=== PATIENT | female | born 1945 ===

== ENCOUNTER 2022-07-14 02:38 | Inpatient (IN) | payer MEDICARE, OTHER ==
[~2022-07-14] VITALS: Ht 160 cm; Wt 58.0 kg
[~2022-07-14 02:38] MED LIST: ALPR.25 PO; CARV6.25 PO; DIAZ10 PO; LOSA50 PO; ONDA4ODT MM; QUET100 PO; THYR60; ZOLP10 PO; thyroid med
[2022-07-14 03:09] LABS: BASOPHILS ABSOLUTE AUTO 0.04 K/mm3 (0.00-0.23); BASOPHILS PERCENT AUTO 0 % (0-2); EOSINOPHILS ABSOLUTE AUTO 0.03 K/mm3 (0.00-0.68); EOSINOPHILS PERCENT AUTO 0 % (0-6); Hematocrit 41.4 % (33.0-51.0); Hemoglobin 13.7 g/dL (11.5-16.0); IMMATURE GRAN ABSOLUTE AUTO 0.07 K/mm3 (0.00-0.10); IMMATURE GRAN PERCENT AUTO 0 % (0-1); LYMPHOCYTES ABSOLUTE AUTO 2.08 K/mm3 (0.84-5.20); LYMPHOCYTES PERCENT AUTO 13 % (21-46); MONOCYTES ABSOLUTE AUTO 0.45 K/mm3 (0.16-1.47); MONOCYTES PERCENT AUTO 3 % (4-13); Mean Corpuscular HGB 28.5 pg (26.0-34.0); Mean Corpuscular HGB Conc 33.1 g/dL (31.5-36.5); Mean Corpuscular Volume 86 fL (80-100); NEUTROPHILS ABSOLUTE AUTO 13.59 K/mm3 (1.96-9.15); NEUTROPHILS PERCENT AUTO 84 % (41-73); Platelet Count 313 K/mm3 (150-400); RDW Coefficient Variation 12.6 % (11.7-14.2); RDW Standard Deviation 39.5 fL (35.1-46.3); White Blood Cell Count 16.26 K/mm3 (4.00-11.30)
[2022-07-14 03:33] LABS: Albumin, Blood 3.6 g/dL (3.4-5.0); Albumin/Globulin Ratio 0.9 (0.8-1.8); Bilirubin, Total 0.4 mg/dL (0.1-1.0); Calcium, Blood 10.1 mg/dL (8.5-10.1); Creatinine, Blood 0.72 mg/dL (0.40-1.00); Globulin, Blood 3.9 g/dL (2.2-4.0); Potassium, Blood 4.1 mmol/L (3.5-5.5); Total Protein, Blood 7.5 g/dL (6.4-8.2)
[2022-07-14] MEDS ORDERED: ATORVASTATIN CA20 MG PO (06:32)
[2022-07-14] MEDS ORDERED: LOSA50 PO (06:32)
[2022-07-14] MEDS ORDERED: OMEP20ER PO (06:32)
[2022-07-14] MEDS ORDERED: CARVEDILOL6.25 MG PO (06:33)
[2022-07-14] MEDS ORDERED: FAMO20 PO (06:33)
[2022-07-14] MEDS ORDERED: ARMOUR THYROID PO (06:33)
[2022-07-14 07:29] LABS: CHOL/HDL RATIO 3.4; Cholesterol 178 mg/dL (50-200); HDL Cholesterol 53 mg/dL (>39); LDL/HDL RATIO 1.9; Low Density Lipoprotein Chol 102 mg/dL (0-110); Triglycerides 116 mg/dL (30-160); Very Low Density Lipoprot Chol 23 mg/dL (6-32)
[2022-07-14 13:34] LABS: SARS-Cov-2 (COVID-19) PCR, MMC NEGATIVE (NEGATIVE)
--- NOTE | 2022-07-14 14:54 | NUR ---
UPDATE HEAD PASTRY CHEF NURSES HERE TO CIRCUIT DESIGNER PT FOR ANGIO. GAVE NURSE BRIEF REPORT ON THE PT AND GOT PT TO VOID BEFORE PROCEDURE. VSS, DESTINY UPON TRANSFER TO HEAD PASTRY CHEF
--- NOTE | 2022-07-14 17:27 | NUR ---
SHIFT SUMMARY PT IS A/Ox4 AND FOLLOWS DIRECTIONS FROM STAFF. PT WAS ADMITTED WITH ELVATED TROPONIN WELL N/V RELATED TO HIATAL HERNIA. PT WENT FOR ANGIO THIS PM WITH STENT PLACEMENT. RIGHT RADIAL ACCESS SITE IS FREE OF BLEDDING, HEMATOMA, ORE REDNESS. PULSES PRESENT ABOVE AND BELOW THE SITE. RIGHT HAND IS COLD, BUT LIKELY RELATED TO THE COOLNESS FROM THE EDUCATIONAL GUIDANCE COUNSELOR. PT MAINTAINING SPO2 >94 ON 6L NX WITH SOME MILD SOB AT REST. PT HAS HAD INTERMITTENT EPISODES OF N/V, BUT RESPONDS WELL TO MEDS PER EMAR. PT HR JESSICA'd TO 49BPM FOR 12 SECS. PT WAS ASYMOTMATIC AND MD NOTIFIED. OTHER VSS, NADN T/O THE SHIFT
--- NOTE | 2022-07-14 18:45 | NUR ---
UPDATE RIGHT RADIAL ANGIO SITE WNL. REMOVED 2CC OF AIR FROM TR BAND AND MONITORED SITE FOR 30 SEC. NO BLEEDING, SWELLING, OR HEMATOMA NOTED. RETURED 15 MINS LATER @1845 AND SAW THAT SITE HAD SOME BLOOD. RETURNED 2 CC OF AIR BACK INTO TR BAND. NO MORE BLEEDING AT SITE NOTED. SMALL HEMATOMA FORMED PUT PULSES PRESENT ABOVE AND BELOW THE SITE. NOTIFIED ONCOMING NURSE ABOUT SITUATION AND WILL CONTINUE TO MONITOR CLOSELY
--- NOTE | 2022-07-14 22:13 | NUR ---
CARE ASSUMPTION: PATIENT A&O X4, VS WNL, DENIES CHEST PAIN/SOB/N/V/D. REVIEWED ANGIO SITE WITH OFF-GOING RN. SANGUINOUS FLUID UNDER TR BAND R/T OOZING WHEN OFFGOING RN REMOVED 2 CCS OF AIR. TR BAND WAS RE-INFLATED TO 9 CC. PATIENT DENIES TINGLING OR NUMBNESS IN RIGHT FINGERS, FINGERS COOL TO TOUCH THAT PATIENT STATES IS NORMAL, CAP REFILL <3 SECS. PATIENT VERBALIZES UNDERSTANDING OF RESTRICTED MOVEMENT OF R ARM. ARMBAND IN PLACE. BED LOW WITH CALL LIGHT IN PLACE.
[2022-07-15 03:57] LABS: Hemoglobin 12.9 g/dL (11.5-16.0); Mean Corpuscular HGB 28.5 pg (26.0-34.0); Mean Corpuscular HGB Conc 33.1 g/dL (31.5-36.5); Mean Corpuscular Volume 86 fL (80-100); Mean Platelet Volume 9.9 fL (9.1-12.4); Platelet Count 272 K/mm3 (150-400); RDW Standard Deviation 40.8 fL (35.1-46.3); Red Blood Cell Count 4.52 M/mm3 (3.80-5.20); White Blood Cell Count 16.01 K/mm3 (4.00-11.30)
[2022-07-15 04:18] LABS: Bun/Creatinine Ratio 47.1 (12.0-20.0); Calcium, Blood 9.3 mg/dL (8.5-10.1); Creatinine, Blood 0.53 mg/dL (0.40-1.00); Magnesium, Blood 2.1 mg/dL (1.6-2.4); Potassium, Blood 3.9 mmol/L (3.5-5.5)
--- NOTE | 2022-07-15 06:48 | NUR ---
SHIFT SUMMARY: PATIENT'S ANGIO SITE RECOVERED, DRESSING IS C/D/I, ARMBOARD IN PLACE. NO SWELLING AT SITE, SOME MILD BRUISING NOTED. VS WNL, A&O X4. PATIENT SBA TO TOILET. PATIENT COMPLAINING OF STOMACH PAIN/GAS AT 0645 - STATES SHE HAS NOT HAD BM IN SEVERAL DAYS. NO ADVERSE EVENTS THIS SHIFT. BED LOW WITH CALL LIGHT IN REACH. WILL REPORT TO ONCOMING RN.
--- NOTE | 2022-07-15 17:34 | NUR ---
SHIFT SUMMARY PT IS A/Ox4 AND FOLLOWS DIRECTIONS GIVEN BY STAFF. PT HAS BEEN NAUSEATED T/O THE SHIFT, BUT THE SCHEDULED ANTEMEICS HAS PRVEN TO BE EFFECTIVE IN MANAGING HER NAUSEA. PT WENT FOR ANGIO 07/14/22 AND HAD ONE STENT PLACED IN THE MID RCA. RADIAL ACCESS SITE HAS BEEN FREE OF BLEEDING OR OOZING T/O THE SHIFT. PULSES PRESENT ABOVE AND BELOW THE SITE, HAND WARM TO THE TOUCH. SMALL HEMATOMA NOTED, BUT HEMATOMA HAS NOT GROWN SINCE THIS AM. SITE NON-TENDER. POSSIBLE DC 07/16/22. PT MAINTAINS SPO2 >94% ON RA, BUT CAN BECOME SOB WITH AMBULATION. PT ON 1500 ML FLUID RESTRICTION. VSS, NADN T/O THE SHIFT
[2022-07-16 04:01] LABS: BASOPHILS ABSOLUTE AUTO 0.02 K/mm3 (0.00-0.23); BASOPHILS PERCENT AUTO 0 % (0-2); EOSINOPHILS ABSOLUTE AUTO 0.04 K/mm3 (0.00-0.68); EOSINOPHILS PERCENT AUTO 0 % (0-6); Hematocrit 38.3 % (33.0-51.0); Hemoglobin 12.9 g/dL (11.5-16.0); IMMATURE GRAN ABSOLUTE AUTO 0.03 K/mm3 (0.00-0.10); IMMATURE GRAN PERCENT AUTO 0 % (0-1); LYMPHOCYTES ABSOLUTE AUTO 2.74 K/mm3 (0.84-5.20); LYMPHOCYTES PERCENT AUTO 20 % (21-46); MONOCYTES ABSOLUTE AUTO 1.12 K/mm3 (0.16-1.47); MONOCYTES PERCENT AUTO 8 % (4-13); Mean Corpuscular HGB 28.9 pg (26.0-34.0); Mean Corpuscular HGB Conc 33.7 g/dL (31.5-36.5); Mean Corpuscular Volume 86 fL (80-100); Mean Platelet Volume 9.8 fL (9.1-12.4); NEUTROPHILS ABSOLUTE AUTO 9.46 K/mm3 (1.96-9.15); NEUTROPHILS PERCENT AUTO 71 % (41-73); Platelet Count 256 K/mm3 (150-400); RDW Coefficient Variation 12.9 % (11.7-14.2); RDW Standard Deviation 39.8 fL (35.1-46.3); Red Blood Cell Count 4.47 M/mm3 (3.80-5.20); White Blood Cell Count 13.41 K/mm3 (4.00-11.30)
[2022-07-16 04:19] LABS: Bun/Creatinine Ratio 36.4 (12.0-20.0); Calcium, Blood 9.2 mg/dL (8.5-10.1); Creatinine, Blood 0.55 mg/dL (0.40-1.00); Magnesium, Blood 2.1 mg/dL (1.6-2.4); Potassium, Blood 3.2 mmol/L (3.5-5.5)
--- NOTE | 2022-07-16 05:43 | NUR ---
SHIFT SUMMARY: PATIENT VS WNL ON RA. DENIES SOB/CHEST PAIN/N/V/D. AMBULATED TO TOILET X2 WITH SBA. PLEASANT AND COOPERATIVE WITH CARE. CALLS APPROPRIATELY. NO ADVERSE EVENTS THIS SHIFT. BED LOW WITH CALL LIGHT IN PLACE. WILL CONTINUE TO MONITOR UNTIL SHIFT CHANGE REPORT.
[2022-07-16] MEDS ORDERED: Aspir 8181 MG PO (11:32)
[2022-07-16] MEDS ORDERED: PANT40 PO (11:32)
[2022-07-16] MEDS ORDERED: CLOP75 PO (11:33)
[2022-07-16] MEDS ORDERED: FURO20 PO (11:34)
[2022-07-16] MEDS ORDERED: METO5A PO (11:35)
[2022-07-16] MEDS ORDERED: METO50ER PO (11:35)
[2022-07-16] MEDS ORDERED: POTCHL20ER PO (11:38)
[2022-07-16] MEDS ORDERED: ONDA4 PO (11:38)
[2022-07-16] MEDS ORDERED: ENTRESTO 24 MG1 EACH PO (11:39)
[2022-07-16] MEDS ORDERED: SPIR25 PO (11:40)
--- NOTE | 2022-07-16 13:15 | NUR ---
PT EXPRESSED UNDERSTANDING OF DC TEACHING OF NEW, CHANGED, AND D/C MEDICATIONS. RT RADIAL SITE REDRESSED WITH FRESH TEGADERM DRESSING, NO CHANGE IN HEMATOMA TO RT RADIAL SITE FROM LAST SHIFT, NO ACTIVE BLEEDING, NO PAIN REPORTED. PT DENIES ANY FURTHER QUESTIONS OR NEEDS FOR D/C. IV REMOVED AND PERSSURE DRESS.
== END 2022-07-16 13:20 | disposition home or self-care (01) | DRG 246 ==
LOC: ER 02:38 → PCU 06:35
PROVIDERS: Emergency Medicine; Family Medicine; Internal Medicine Cardiovascular Disease; ADMIT Family Medicine
PROC: 4A023N7 Measurement of Cardiac Sampling and Pressure, Left Heart, Percutaneous Approach (ICD-10-PCS; principal; 2022-07-14)
PROC: 027034Z Dilation of Coronary Artery, One Artery with Drug-eluting Intraluminal Device, Percutaneous Approach (ICD-10-PCS; 2022-07-14)
PROC: B2111ZZ Fluoroscopy of Multiple Coronary Arteries using Low Osmolar Contrast (ICD-10-PCS; 2022-07-14)
DX: I21.4 Non-ST elevation (NSTEMI) myocardial infarction (principal); I50.21 Acute systolic (congestive) heart failure; I42.8 Other cardiomyopathies; I11.0 Hypertensive heart disease with heart failure; F32.A Depression, unspecified; K21.9 Gastro-esophageal reflux disease without esophagitis; K44.9 Diaphragmatic hernia without obstruction or gangrene; E03.9 Hypothyroidism, unspecified; E78.5 Hyperlipidemia, unspecified; D72.829 Elevated white blood cell count, unspecified; R73.9 Hyperglycemia, unspecified; Z79.899 Other long term (current) drug therapy; Z82.49 Family history of ischemic heart disease and other diseases of the circulatory system
CPT/HCPCS: 36415; 74177; 80048; 80053; 80061; 82947; 83036; 83690; 83735; 84484; 85025; 85027; 85347; 93005; 93010; 93306; 93458; 96374-59; 96375; 96376; 99152; 99153; 99285-25; A9270; C1725; C1769; C1874; C1887; C1894; C9113; C9600; J1170; J1644; J1815; J1940; J2250; J2405; J2550; J2765; J3010; J7030; J7040; J7050; Q9967; U0004

== ENCOUNTER 2022-12-10 12:41 | Emergency (ER) | payer MEDICARE, OTHER ==
[~2022-12-10] VITALS: Ht 157.5 cm; Wt 49.9 kg
[~2022-12-10 12:41] MED LIST changes: +ARMOUR THYROID PO; +ATORVASTATIN CA20 MG PO; +Aspir 8181 MG PO; +CARVEDILOL6.25 MG PO; +CEFD300 PO; +CLOP75 PO; +ENTRESTO 24 MG1 EACH PO; +FAMO20 PO; +FURO20 PO; +METO50ER PO; +METO5A PO; +OMEP20ER PO; +ONDA4 PO; +PANT40 PO; +POTCHL20ER PO; +SPIR25 PO
[2022-12-10 15:35] LABS: BASOPHILS ABSOLUTE AUTO 0.01 K/mm3 (0.00-0.23); BASOPHILS PERCENT AUTO 0 % (0-2); EOSINOPHILS ABSOLUTE AUTO 0.01 K/mm3 (0.00-0.68); EOSINOPHILS PERCENT AUTO 0 % (0-6); Hematocrit 42.1 % (33.0-51.0); Hemoglobin 14.4 g/dL (11.5-16.0); IMMATURE GRAN ABSOLUTE AUTO 0.04 K/mm3 (0.00-0.10); IMMATURE GRAN PERCENT AUTO 0 % (0-1); LYMPHOCYTES ABSOLUTE AUTO 0.61 K/mm3 (0.84-5.20); LYMPHOCYTES PERCENT AUTO 4 % (21-46); MONOCYTES ABSOLUTE AUTO 0.15 K/mm3 (0.16-1.47); MONOCYTES PERCENT AUTO 1 % (4-13); Mean Corpuscular HGB 29.4 pg (26.0-34.0); Mean Corpuscular HGB Conc 34.2 g/dL (31.5-36.5); Mean Corpuscular Volume 86 fL (80-100); Mean Platelet Volume 9.6 fL (9.1-12.4); NEUTROPHILS ABSOLUTE AUTO 13.22 K/mm3 (1.96-9.15); NEUTROPHILS PERCENT AUTO 94 % (41-73); Platelet Count 285 K/mm3 (150-400); RDW Coefficient Variation 12.9 % (11.7-14.2); RDW Standard Deviation 39.9 fL (35.1-46.3); Red Blood Cell Count 4.89 M/mm3 (3.80-5.20); White Blood Cell Count 14.04 K/mm3 (4.00-11.30)
[2022-12-10 16:29] LABS: Albumin, Blood 3.7 g/dL (3.4-5.0); Albumin/Globulin Ratio 0.9 (0.8-1.8); Bilirubin, Total 0.6 mg/dL (0.1-1.0); Calcium, Blood 10.1 mg/dL (8.5-10.1); Creatinine, Blood 0.84 mg/dL (0.40-1.00); Globulin, Blood 3.9 g/dL (2.2-4.0); Potassium, Blood 4.4 mmol/L (3.5-5.5); Total Protein, Blood 7.6 g/dL (6.4-8.2)
[2022-12-10 16:55] LABS: Source, Urine Straight Cath
[2022-12-10 17:05] LABS: Bilirubin, Urine Neg (Neg); Blood, Urine 5+ (Neg); Glucose Qualitative, Urine 1+ (Neg); Ketones, Urine 2+ (Neg); Leukocyte Esterase, Urine 2+ (Neg); Nitrite, Urine Neg (Neg); Protein, Urine 3+ (Neg); Specific Gravity, Urine 1.015 (1.003-1.022); Urobilinogen, Urine NORM (Normal)
[2022-12-10 17:15] LABS: Appearance, Urine Bloody (Clear); Color, Urine Red (P-Yellow)
[2022-12-10 17:16] LABS: Bacteria Few /hpf; Red Blood Cells, Urine TNTC /hpf (0-2); Squamous Epithelial Cells Not Seen /hpf (Few)
[2022-12-10] MEDS ORDERED: PROM25 PO (19:54)
== END 2022-12-10 20:08 | disposition home or self-care (01) ==
LOC: ER 12:41
PROVIDERS: Student in an Organized Health Care Education/Training Program
DX: K44.9 Diaphragmatic hernia without obstruction or gangrene (principal); I10 Essential (primary) hypertension; E78.5 Hyperlipidemia, unspecified; E03.9 Hypothyroidism, unspecified; Z88.2 Allergy status to sulfonamides; Z79.899 Other long term (current) drug therapy; Z79.82 Long term (current) use of aspirin
CPT/HCPCS: 74176; 80053; 81001; 83690; 84484; 85025; A9270; C9113; J2270; J2405; J2765; J7030

== ENCOUNTER 2023-11-11 18:59 | Inpatient (IN) | payer MEDICARE, OTHER ==
[~2023-11-11] VITALS: Ht 152.4 cm; Wt 48.7 kg
[~2023-11-11 18:59] MED LIST changes: +PROM25 PO
[2023-11-11] MEDS ORDERED: Ondansetron HCl 2 MG / ML 2ML Vial IV PRN (19:30)
[2023-11-11 19:33] LABS: BASOPHILS ABSOLUTE AUTO 0.03 K/mm3 (0.00-0.23); BASOPHILS PERCENT AUTO 1 % (0-2); EOSINOPHILS PERCENT AUTO 0 % (0-6); Hematocrit 43.1 % (33.0-51.0); Hemoglobin 14.4 g/dL (11.5-16.0); IMMATURE GRAN ABSOLUTE AUTO 0.03 K/mm3 (0.00-0.10); IMMATURE GRAN PERCENT AUTO 1 % (0-1); LYMPHOCYTES ABSOLUTE AUTO 0.87 K/mm3 (0.84-5.20); LYMPHOCYTES PERCENT AUTO 14 % (21-46); MONOCYTES ABSOLUTE AUTO 0.19 K/mm3 (0.16-1.47); MONOCYTES PERCENT AUTO 3 % (4-13); Mean Corpuscular HGB 29.4 pg (26.0-34.0); Mean Corpuscular HGB Conc 33.4 g/dL (31.5-36.5); Mean Corpuscular Volume 88 fL (80-100); Mean Platelet Volume 9.2 fL (9.1-12.4); NEUTROPHILS ABSOLUTE AUTO 5.25 K/mm3 (1.96-9.15); NEUTROPHILS PERCENT AUTO 82 % (41-73); Platelet Count 364 K/mm3 (150-400); RDW Coefficient Variation 13.3 % (11.7-14.2); RDW Standard Deviation 43.1 fL (35.1-46.3); Red Blood Cell Count 4.89 M/mm3 (3.80-5.20); White Blood Cell Count 6.37 K/mm3 (4.00-11.30)
[2023-11-11 19:55] LABS: Albumin, Blood 4.3 g/dL (3.4-5.0); Bilirubin, Total 0.7 mg/dL (0.1-1.0); Bun/Creatinine Ratio 22.6 (12.0-20.0); Calcium, Blood 10.3 mg/dL (8.5-10.1); Creatinine, Blood 0.71 mg/dL (0.40-1.00); Globulin, Blood 4.2 g/dL (2.2-4.0); Potassium, Blood 3.7 mmol/L (3.5-5.5); Total Protein, Blood 8.5 g/dL (6.4-8.2)
[2023-11-11] MEDS ORDERED: Lidocaine 2% Viscous Soln 15 ML UDC PO ONE (20:10)
[2023-11-11] MEDS ORDERED: Mag Hydrox/AL Hydrox/Simeth 30 ML UDC PO ONE (20:10)
[2023-11-11] MEDS ORDERED: Lactated Ringer's 1,000 ML IV ONE (20:50)
[2023-11-11] MEDS ORDERED: Simethicone 40 MG/0.6 ML 30ML BTL PO ONE (22:30)
[2023-11-11] MEDS ORDERED: Metoclopramide HCl 5MG / ML 2ML Vial IV ONE (22:30)
[2023-11-11 22:54] LABS: Source, Urine Foley catheter
[2023-11-11 22:57] LABS: Appearance, Urine Clear (Clear); Bilirubin, Urine Neg (Neg); Blood, Urine 5+ (Neg); Color, Urine Pale Yellow (P-Yellow); Glucose Qualitative, Urine 2+ (Neg); Ketones, Urine 3+ (Neg); Leukocyte Esterase, Urine Neg (Neg); Nitrite, Urine Neg (Neg); Protein, Urine 2+ (Neg); Urobilinogen, Urine NORM (Normal)
[2023-11-11 23:03] LABS: Bacteria Rare /hpf; Red Blood Cells, Urine 50-100 /hpf (0-2); Squamous Epithelial Cells Rare /hpf (Few); White Blood Cells, Urine Not Seen /hpf (0-5)
[2023-11-11] MEDS ORDERED: Lactated Ringer's 1,000 ML IV SCH (23:15)
[2023-11-11] MEDS ORDERED: FentaNYL Citrate 50 MCG/ML 2 ML Injection IV ONE (23:15)
[2023-11-12] MEDS ORDERED: FLU VACC QS2023-24(6MOS UP)/PF 60 MCG/0.5 ML SYRINGE IM SCH (03:15)
[2023-11-12 04:10] VITALS: BP 119/69
[2023-11-12] MEDS ORDERED: FentaNYL Citrate 50 MCG/ML 2 ML Injection IV PRN (04:30)
[2023-11-12] MEDS ORDERED: Ondansetron HCl 2 MG / ML 2ML Vial IV PRN (04:30)
[2023-11-12] MEDS ORDERED: Metoclopramide HCl 5MG / ML 2ML Vial IV PRN (04:35)
[2023-11-12] MEDS ORDERED: Lactated Ringer's 1,000 ML IV SCH (05:00)
--- NOTE | 2023-11-12 05:21 | NUR ---
ARRIVAL PT IS NEW ADMIT FROM ER. ARRIVED IN NO DISTRESS, A/OX3, POOR HISTORIAN AND MINIMALLY INTERACTIVE. PT REPORTS DIFFUSE WEAKNESS AND LETHARGY. ABLE TO MOVE ALL EXTREMITIES ON COMMAND. DIAMOND PLACED IN ER. PT DENIES N/V AT THIS TIME BUT ENDORSES EXTREME SALIVATION. NURSING EVENTS INTERN SPOKE TO HOSPITALIST AND KASSANDRA, STATED THEY WOULD TAKE THIS PATIENT A TRANSFER FOR SURGERY BUT WOULD LIKE TO SEE HOW IV ABX AND IV FLUIDS DO. THE PATIENT IS RESTING, IN NO DISTRESS, CALL LIGHT IN REACH
[2023-11-12 05:59] LABS: BASOPHILS ABSOLUTE AUTO 0.01 K/mm3 (0.00-0.23); BASOPHILS PERCENT AUTO 0 % (0-2); EOSINOPHILS PERCENT AUTO 0 % (0-6); Hematocrit 36.3 % (33.0-51.0); Hemoglobin 12.2 g/dL (11.5-16.0); IMMATURE GRAN ABSOLUTE AUTO 0.02 K/mm3 (0.00-0.10); IMMATURE GRAN PERCENT AUTO 0 % (0-1); LYMPHOCYTES ABSOLUTE AUTO 1.11 K/mm3 (0.84-5.20); LYMPHOCYTES PERCENT AUTO 17 % (21-46); MONOCYTES ABSOLUTE AUTO 0.43 K/mm3 (0.16-1.47); MONOCYTES PERCENT AUTO 6 % (4-13); Mean Corpuscular HGB 29.9 pg (26.0-34.0); Mean Corpuscular HGB Conc 33.6 g/dL (31.5-36.5); Mean Corpuscular Volume 89 fL (80-100); Mean Platelet Volume 9.4 fL (9.1-12.4); NEUTROPHILS PERCENT AUTO 77 % (41-73); Platelet Count 290 K/mm3 (150-400); RDW Coefficient Variation 13.2 % (11.7-14.2); RDW Standard Deviation 43.3 fL (35.1-46.3); Red Blood Cell Count 4.08 M/mm3 (3.80-5.20); White Blood Cell Count 6.67 K/mm3 (4.00-11.30)
[2023-11-12] MEDS ORDERED: Pantoprazole Sodium 40 MG Injection IV SCH (06:00)
[2023-11-12 06:30] LABS: Bun/Creatinine Ratio 21.1 (12.0-20.0); Calcium, Blood 9.1 mg/dL (8.5-10.1); Creatinine, Blood 0.62 mg/dL (0.40-1.00); Potassium, Blood 3.6 mmol/L (3.5-5.5)
[2023-11-12 07:54] VITALS: BP 137/71
[2023-11-12] MEDS ORDERED: Enoxaparin 40 MG/0.4 ML SYR SC SCH (09:00)
[2023-11-12] MEDS ORDERED: ENTRESTO 24 MG1 EACH PO (12:57)
[2023-11-12] MEDS ORDERED: VENL150ER PO (12:59)
[2023-11-12] MEDS ORDERED: EUTHYROX50 MCG PO (13:03)
[2023-11-12] MEDS ORDERED: ATORVASTATIN CA20 MG PO ×2 (13:04)
[2023-11-12] MEDS ORDERED: ONDA4ODT SL (13:05)
[2023-11-12] MEDS ORDERED: OXYC5 PO (13:06)
--- NOTE | 2023-11-12 15:39 | NUR ---
SHIFT SUMMARY: PATIENT IS A&OX3-4 BUT IS A POOR HISTORIAN WITH HER MEDICATIONS SHE TAKES AT HOME. VS ARE WNL AND IS ON RA WITH >90% OXYGEN SATS. PER DR. LINTON PATIENT IS ABLE TO HAVE SMALL SIPS OF WATER INTERMITTENTLY THROUGHOUT THE DAY, WHICH PATIENT HAS BEEN TOLERATING WITHOUT FEELING NAUSEOUS OR VOMITING. PATIENT HAS A DIAMOND IN PLACE AND IS DRAINING PER GRAVITY. PATIENT THOUGH CONTINUES TO BE NPO WITH IV FLUIDS RUNNING. PATIENT CALLS APPROPRIATELY WITH CALL LIGHT IN REACH AND FAMILY MEMBER AT BEDSIDE.
[2023-11-12 15:54] VITALS: BP 159/72
[2023-11-12 20:54] VITALS: BP 145/79
[2023-11-12] MEDS ORDERED: Atorvastatin 40 MG Tab PO SCH (21:00)
[2023-11-12] MEDS ORDERED: Sacubitril/Valsartan 24 MG-26 MG Tab PO SCH (21:00)
[2023-11-12] MEDS ORDERED: Metoprolol Succinate 50 MG TABCR PO SCH (21:00)
[2023-11-12] MEDS ORDERED: Venlafaxine HCl 25 MG Tab PO SCH (21:00)
[2023-11-13] VITALS (8 sets, daily range): BP systolic 137–198; BP diastolic 79–99
--- NOTE | 2023-11-13 04:42 | NUR ---
SHIFT SUMMARY S/P FUNDIPLICATION IN [facility]. PT ON OBS R/T ESOPHAGUS SWELLING. NPO AT THIS TIME, PT TOLERATING MINIMAL SIPS OF WATER. NO NAUSEA. NO BM. IV FLUIDS INFUSING PER LOBO YANG IN PLACE. PT ON BEDREST AT THIS TIME. PT STATES NO PAIN OVERNIGHT. CALL LIGHT WITHIN REACH, BED IN LOWEST POSITION, WILL REPORT TO DAY RN.
[2023-11-13] MEDS ORDERED: Levothyroxine Sodium 0.05 MG Tab PO SCH (06:00)
[2023-11-13 06:26] LABS: BASOPHILS ABSOLUTE AUTO 0.03 K/mm3 (0.00-0.23); BASOPHILS PERCENT AUTO 0 % (0-2); EOSINOPHILS ABSOLUTE AUTO 0.03 K/mm3 (0.00-0.68); EOSINOPHILS PERCENT AUTO 0 % (0-6); Hematocrit 36.7 % (33.0-51.0); Hemoglobin 12.3 g/dL (11.5-16.0); IMMATURE GRAN ABSOLUTE AUTO 0.02 K/mm3 (0.00-0.10); IMMATURE GRAN PERCENT AUTO 0 % (0-1); LYMPHOCYTES ABSOLUTE AUTO 1.77 K/mm3 (0.84-5.20); LYMPHOCYTES PERCENT AUTO 21 % (21-46); MONOCYTES ABSOLUTE AUTO 0.66 K/mm3 (0.16-1.47); MONOCYTES PERCENT AUTO 8 % (4-13); Mean Corpuscular HGB 29.9 pg (26.0-34.0); Mean Corpuscular HGB Conc 33.5 g/dL (31.5-36.5); Mean Corpuscular Volume 89 fL (80-100); Mean Platelet Volume 9.4 fL (9.1-12.4); NEUTROPHILS ABSOLUTE AUTO 5.86 K/mm3 (1.96-9.15); NEUTROPHILS PERCENT AUTO 70 % (41-73); Platelet Count 269 K/mm3 (150-400); RDW Coefficient Variation 13.4 % (11.7-14.2); Red Blood Cell Count 4.11 M/mm3 (3.80-5.20); White Blood Cell Count 8.37 K/mm3 (4.00-11.30)
[2023-11-13 06:53] LABS: Bun/Creatinine Ratio 18.7 (12.0-20.0); Calcium, Blood 9.2 mg/dL (8.5-10.1); Creatinine, Blood 0.64 mg/dL (0.40-1.00); Potassium, Blood 3.1 mmol/L (3.5-5.5)
[2023-11-13] MEDS ORDERED: Potassium Chloride 40 MEQ in NS 250 ML IV ONE (07:55)
[2023-11-13] MEDS ORDERED: Clopidogrel Bisulfate 75 MG Tab PO SCH (09:00)
[2023-11-13] MEDS ORDERED: Spironolactone 12.5 MG TAB PO SCH (09:00)
[2023-11-13] MEDS ORDERED: Furosemide 20 MG Tab PO SCH (09:00)
[2023-11-13] MEDS ORDERED: Potassium Chloride 20 MEQ TabCR PO SCH (09:00)
[2023-11-13] MEDS ORDERED: Aspirin 81 MG TabEC PO SCH (09:00)
[2023-11-13] MEDS ORDERED: Scopolamine Hydrobromide Patch TD ONE (12:00)
--- NOTE | 2023-11-13 12:04 | NUR ---
PATIENT USED HER CALL LIGHT AND THIS NURSE CAME INTO THE ROOM TO ASK WHAT SHE NEEDED. PATIENT IS LAYING IN HER BED WITH AN EMESIS BAG WITH WHITE SALIVA WITH LIGHT YELLOWISH COLOR TO IT. PATIENT STATES "THAT YELLOW COLOR LOOKS LIKE THE CHICKEN BROTH I HAD FOR BREAKFAST". THIS NURSE THEN UPDATED DR. LINTON ON THE PATIENTS STATUS CHANGE. DR. LINTON ORDERED FOR HER TO BE NPO AGAIN AND TO PLACE A SCOPOLAMINE PATCH FOR THE PATIENT. THIS NURSE JUST PLACED THE SCOPOLAMINE PATCH BEHIND THE PATIENTS LEFT EAR TO HELP REDUCE HER SALIVA SECRETIONS, AND TOLD THE PATIENT SHE WAS TO BE NOTHING BY MOUTH AGAIN DUE TO HER SPITTING UP. PATIENT VERBALIZED UNDERSTANDING OF EDUCATION. SHE IS CURRENTLY LAYING IN BED WITH CALL LIGHT IN REACH AND AT BEDSIDE.
[2023-11-13] MEDS ORDERED: DiphenhydrAMINE HCl 50 MG/ML 1ML Vial IV PRN (12:05)
--- NOTE | 2023-11-13 12:12 | NUR ---
PATIENT JUST SHOWED THIS NURSE THE OUTPUT COMING OUT OF HER NOSE WHEN SHE WAS SPITTING UP WHICH IS A RED COLOR TO IT. THIS NURSE JUST NOTIFIED DR. LINTON ABOUT THIS NEW INFORMATION. NO RESPONSE YET BY DR. LINTON AT THIS TIME.
--- NOTE | 2023-11-13 12:16 | NUR ---
DR. BALDERAS WAS ALSO JUST NOW NOTIFIED OF THE NEW CHANGE IN PATIENTS STATUS IN WHICH DR. BALDERAS REPLIED "I'LL PUT IN NEW ORDERS AND I WILL COME AND EXAMINE HER SHORTLY".
--- NOTE | 2023-11-13 12:42 | NUR ---
DR. LINTON IS IN THE PATIENTS ROOM AND EXPLAINED TO THE AT BEDSIDE AND THE PATIENT WHAT HE WAS THINKING. PATIENT WAS GIVEN IV BENADRYL PER DR. STEEL ORDERS FOR THE INCREASE IN SALVATION. PATIENT IS CURRENTLY LAYING IN BED WITH CALL LIGHT IN REACH AND STILL AT BEDSIDE.
--- NOTE | 2023-11-13 15:31 | NUR ---
THE PATIENT CALLED THIS NURSE AND ASKED WHY HER LEFT ARM WAS RED. PATIENT DENIED NUMBNESS/TINGLING, ITCHINGNESS, OR PAIN TO THE LEFT ARM. ALSO PATIENTS SBP WAS 190 WHICH IT HAS NOT BEEN THAT HIGH DURING THE SHIFT SO FAR AND SHE ALSO TOOK HER PO BP MEDS THIS MORNING PRIOR TO BECOMING NAUSEOUS. THIS NURSE THEN CALLED DR. BALDERAS AND REPORTED THE PATIENTS VITALS AND PATIENTS LEFT ARM REDNESS TO HIM. DR. BALDERAS THEN CAME DOWN TO THE PATIENTS ROOM TO ASSESS HER. DR. BALDERAS THEN STATED HE WOULD PLACE ORDERS FOR IV HYDRALAZINE, CONTINUE THE IV FLUIDS, AND TO CONTINUE TO MONITOR THE LEFT ARM REDNESS AND HER VITALS AT THIS TIME.
--- NOTE | 2023-11-13 15:49 | NUR ---
SHIFT SUMMARY: S/P FUNDIPLICATION IN [facility] PATIENT WAS ABLE TO TOLERATE CLEAR LIQUIDS THIS MORNING BUT THEN AT LUNCH BECAME NAUSEATED (SEE PREVIOUS NOTES). PATIENT HAS RECEIVED IV BENADRYL, IV ZOFRAN, SCOPOLAMINE PATCH BEHIND THE LEFT EAR, AND IV REGLAN WITH LITTLE TO NO RELIEF FOR THE PATIENTS NAUSEOUS FEELING. PATIENT IS SPITTING UP WHITE/CLEAR SALVATION SINCE BECOMING NAUSEOUS. DR. BALDERAS IS AWARE (SEE PRIOR NOTES). PATIENTS SBP HAS ALSO INCREASED TO BEING IN THE 190'S. AWAITING FOR DR. HURD IV HYDRALAZINE ORDER HE SAID HE WOULD PUT IN (SEE PRIOR NOTES). PATIENT DENIES ABD PAIN AND IS ABLE TO PASS GAS. SHE HAS HER DIAMOND DRAINING PER GRAVITY LIGHT PINK-YELLOW URINE OUTPUT WITH NO KINKS IN TUBING. PATIENT IS CURRENTLY NPO WITH IV LR FLUIDS RUNNING THROUGH HER IV AT THIS TIME. SHE CALLS APPROPRIATELY SHE IS LAYING IN BED WITH CALL LIGHT IN REACH. THE PLAN IS TO CONTINUE NAUSEA MANAGEMENT AND IF NO IMPROVEMENT WILL POSSIBLY BE SENT UP TO [facility].
[2023-11-13] MEDS ORDERED: HydrALAZINE HCl 20 MG / ML 1ML Vial IV PRN (20:50)
[2023-11-14] VITALS (30 sets, daily range): BP systolic 111–191; BP diastolic 61–97
[2023-11-14 05:21] LABS: BASOPHILS ABSOLUTE AUTO 0.02 K/mm3 (0.00-0.23); BASOPHILS PERCENT AUTO 0 % (0-2); EOSINOPHILS PERCENT AUTO 0 % (0-6); Hematocrit 39.5 % (33.0-51.0); Hemoglobin 13.5 g/dL (11.5-16.0); IMMATURE GRAN ABSOLUTE AUTO 0.06 K/mm3 (0.00-0.10); IMMATURE GRAN PERCENT AUTO 1 % (0-1); LYMPHOCYTES ABSOLUTE AUTO 1.57 K/mm3 (0.84-5.20); LYMPHOCYTES PERCENT AUTO 14 % (21-46); MONOCYTES ABSOLUTE AUTO 1.01 K/mm3 (0.16-1.47); MONOCYTES PERCENT AUTO 9 % (4-13); Mean Corpuscular HGB 29.9 pg (26.0-34.0); Mean Corpuscular HGB Conc 34.2 g/dL (31.5-36.5); Mean Corpuscular Volume 88 fL (80-100); Mean Platelet Volume 9.3 fL (9.1-12.4); NEUTROPHILS PERCENT AUTO 76 % (41-73); Platelet Count 302 K/mm3 (150-400); RDW Coefficient Variation 13.3 % (11.7-14.2); RDW Standard Deviation 42.6 fL (35.1-46.3); Red Blood Cell Count 4.51 M/mm3 (3.80-5.20); White Blood Cell Count 11.26 K/mm3 (4.00-11.30)
[2023-11-14 05:39] LABS: Albumin, Blood 3.1 g/dL (3.4-5.0); Albumin/Globulin Ratio 0.9 (0.8-1.8); Bilirubin, Total 0.6 mg/dL (0.1-1.0); Bun/Creatinine Ratio 25.8 (12.0-20.0); Calcium, Blood 9.1 mg/dL (8.5-10.1); Creatinine, Blood 0.62 mg/dL (0.40-1.00); Globulin, Blood 3.6 g/dL (2.2-4.0); Potassium, Blood 3.4 mmol/L (3.5-5.5); Total Protein, Blood 6.7 g/dL (6.4-8.2)
--- NOTE | 2023-11-14 06:02 | NUR ---
SHIFT SUMMARY PT HAS RESTED FOR A GOOD PORTION OF THE SHIFT. AT THE BEGINNING OF THE SHIFT PT WAS UNCOMFORTABLE AND NAUSEATED, SHE REPORTED ABD/EPIGASTRIC PAIN ALSO. PT WAS UNBLE TO TAKE HER EVENING MEDS DUE TO NAUSEA. PT WAS SPITTING UP CLEAR PHELGM. PT MEDICATED FOR NAUSEA AND PAIN WITH EFFECT, SINCE THAT TIME PT HAS RESTED COMFORTABLY WITHOUT EVENT. DR. BARNES ROUNDED ON PT AT THE START OF THE SHIFT, AND WAS GIVEN AN UPDATE ON PT CONDITION. I MADE HIM AWARE OF PT CONTINUED NAUSEA AND PAIN. DR. BARNES WANTED TO CONTINUE WITH REGLAN AND ZOFRAN PRN. HE WAS ALSO NOTIFIED OF PT HYPERTENSION AND HYDRALYZINE ORDERED PRN. PT BP HAS IMPROVED WITHOUT THE NEED OF HYDRALYZINE THIS SHIFT. EKG ALSO ORDERED BY DR. BARNES THIS SHIFT TO MONITOR QT BECAUSE OF THE ZOFRAN SHE HAS BEEN RECEIVING. DR. BARNES MADE AWARE OF EKG RESULTS WITH NO ADDITIONAL ORDERS GIVEN. DIAMOND IN PLACE PATENT AND DRAINING URINE IS YELLOW/PINK TINGED, IT WAS NOTED TO BE THAT WAY DURING DAYSHIFT ALSO. HGB STABLE, VITALS STABLE. IVF INFUSING. BED IN LOWEST POSITION, CALL LIGHT WITHIN REACH.
[2023-11-14] MEDS ORDERED: Potassium Chloride 20 MEQ TabCR PO ONE (08:25)
[2023-11-14] MEDS ORDERED: LORazepam 2 MG/ML 1ML Injection IV ONE ×2 (10:10→12:15)
[2023-11-14] MEDS ORDERED: LORazepam 2 MG/ML 1ML Injection ONE (11:33)
[2023-11-14] MEDS ORDERED: Lactated Ringer's 1,000 ML IV SCH ×2 (11:50→15:35)
[2023-11-14] MEDS ORDERED: LevETIRAcetam 500 MG Tab PO SCH (12:00)
--- NOTE | 2023-11-14 12:19 | NUR ---
RAPID RESPONSE RN CAME TO PT'S ROOM TO GIVE ORDERED MEDICATIONS. BEFORE RN COULD GET TO ROOM, FAMILY MEMBER CAME OUT AND SAID THAT HE WAS CONCERNED FOR THE PT BECAUSE SHE WAS NOT RESPONDING AND HER GAZE HAD DRIFTED TO THE LEFT. RN ENTERED ROOM AND NOTICED PT WAS GAZING TO THE LEFT. RN TRIED TO GET PT TO FOLLOW OBJECT WITH HER EYES AND PT WAS UNABLE. PT ALSO UNABLE TO RESPOND TO QUESTIONS OR OBEY COMMANDS. PT THEN BEGAN TO CONVULSE AND HAD FOAMING AT THE MOUTH. RN NOTIFIED COMPANY DOCTOR AND RAPID RESPONSE CALLED. RN ENSURED THAT PT WAS IN A SAFE POSITION AND TIMED THE CONVULSING EPISODE. RAPID RESPONSE TEAM ARRIVED AND PT WAS TRANSFERRED TO ICU13. RN GAVE BEDSIDE REPORT TO ADMINISTRATIVE LAW JUDGE. WHEN RN INTERACTED WITH PT EARLIER THIS AM SHE WAS A/O X4 AND ABLE TO FOLLOW COMMANDS. PT ONLY C/O NAUSEA AND HAD EXCESS SALIVA THAT SHE CONSTANTLY FELT LIKE SHE HAD TO "SPIT UP". PT TREATED PER EMR FOR THE NAUSEA BUT OTHER ORAL MEDICATIONS HELD DUE TO THE NAUSEA. DOCTOR AWARE THAT MEDICATIONS WERE HELD AND RECOMMENDED IT. DOCTOR PUT IN ORDER FOR ATIVAN TO HELP WITH NAUSEA. RN ON WAY TO PT'S ROOM WITH THE ATIVAN WHEN EPISODE HAPPENED.
[2023-11-14] MEDS ORDERED: levETIRAcetam 1,000 MG in NS 100 ML IV SCH (12:20)
--- NOTE | 2023-11-14 12:30 | NUR ---
INITIAL ASSESSMENT/ TRANSFER FROM SURGICAL FLOOR PATIENT ARRIVED FROM SURGICAL FLOOR AT 1150. PATIENT MINIMALLY RESPONSIVE TO PAINFUL STIMULI WITH SLIGHT MOVEMENT OF ARMS. PATIENT NORMALLY ALERT AND ORIENTED X 4 PER REPORT FROM MENTAL HEALTH CASE MANAGER AND . PUPILS SLUGGISH TO LIGHT. PATIENT AFEBRILE. NO SIGNS OF PAIN NOTED. PATIENT SATTING 90% AND GREATER ON 2 L NC. PATIENT RA AT HOME. NASAL TRUMPET IN PLACE. LUNG SOUNDS DIM THROUGHOUT. SHALLOW BREATHS NOTED. PATIENT IN SR, HR IN THE 80S. SBP IN THE 130S. PATIENT NPO BECAUSE OF MENTATION. DATE OF LAST BM 11/11 PER DOCUMENTATION. DIAMOND DRAINING ORANGE/ PINK TINGED URINE. SKIN PALE, DRY, WARM. OLD INCISIONS NOTED TO ABD FROM RECENT SURGICAL PROCEDURE. RED, NON-BLANCHEABLE AREAS NOTED TO COCCYX AND MID SPINE; MEPILEX APPLIED TO EACH SITE. LR AT 200 MLS/ HOUR. BED LOW, CALL LIGHT IN REACH. AT BEDSIDE. ORIENTED TO UNIT, ROOM AND CALL LIGHT. CARE CONTINUES.
[2023-11-14 13:25] LABS: Base Excess Venous -2.1 mmol/L; Bicarbonate Venous 22.5 mmol/L (24.0-30.0); PCO2 Venous 37.4 mmHg (38-42); pH Blood Venous 7.39 (7.34-7.37)
[2023-11-14] MEDS ORDERED: Potassium Chloride 40 MEQ in NS 250 ML IV ONE (14:40)
[2023-11-14 15:27] LABS: Albumin, Blood 3.6 g/dL (3.4-5.0); Albumin/Globulin Ratio 0.8 (0.8-1.8); Bilirubin, Total 0.6 mg/dL (0.1-1.0); Bun/Creatinine Ratio 26.9 (12.0-20.0); Calcium, Blood 9.6 mg/dL (8.5-10.1); Creatinine, Blood 0.74 mg/dL (0.40-1.00); Free Thyroxine 1.05 ng/dL (0.70-1.60); Globulin, Blood 4.3 g/dL (2.2-4.0); Potassium, Blood 3.7 mmol/L (3.5-5.5); Total Protein, Blood 7.9 g/dL (6.4-8.2)
--- NOTE | 2023-11-14 16:00 | NUR ---
PATIENT AFEBRILE. PATIENT NEURO STATUS IMPROVING. PATIENT NOW RESPONDING TO VERBAL STIMULI. PATIENT OPENS EYES SLIGHTLY FOR SPLIT SECOND WHEN ASKED. PATIENT ALSO ABLE TO SQUEEZE HANDS WHEN ASKED. PATIENT MOVING ALL EXTREMITIES WEAKLY. HR IN THE 70S. SBP IN THE 150S. NO OTHER ACUTE CHANGES TO NOTE ON AT THIS TIME. AT BEDSIDE. NO SIGNS OF PAIN NOTED. BED LOW, CALL LIGHT IN REACH. CARE CONTINUES.
--- NOTE | 2023-11-14 19:09 | NUR ---
SHIFT SUMMARY PATIENT OBTUNDED FIRST FEW HOURS AFTER ARRIVING FROM SURGICAL FLOOR. PATIENT NOW ABLE TO FOLLOW SOME SIMPLE COMMANDS SUCH OPENING EYES, MOUTH AND SQUEEZING HANDS WHEN ASKED. PATIENT HAS HAD NO SIGNS OF PAIN THIS SHIFT. PATIENT HAS REMAINED AFEBRILE. PATIENT HAS REMAINED SATTING 90% AND GREATER ON 2 L NC. BREATHS SHALLOW. PATIENT HAS REMAINED IN SR, HR 60S TO 90S. SBP LOW 100S TO 190S. PATIENT GIVEN 10MG IV HYDRALAZINE OT THIS SHIFT AND SBP CAME DOWN FROM 190S TO 140S. NO BM THIS SHIFT. PATIENT REMAINED NPO. DIAMOND DRAINED ADEQUATE AMOUNT OF ORANGE/ PINK COLORED URINE. PICS OF NONBLANCHEABLE RED AREAS PLACED IN CHART; MEPILEX PLACED TO EACH SITE. LR AT 200 MLS/ HOUR. PATIENT RECEIVED IV KEPPRA. CT OF HEAD, NECK AND CHEST PERFORMED THIS SHIFT. PATIENT RECEIVED KCL REPLACEMENT THIS SHIFT. HERE THIS SHIFT. REPORT GIVEN TO ASSUMING UTILITY MANAGER NURSE.
[2023-11-14] MEDS ORDERED: NS 1,000 ML IV SCH (20:05)
[2023-11-15] VITALS (8 sets, daily range): BP systolic 119–198; BP diastolic 70–91
[2023-11-15 03:50] LABS: BASOPHILS ABSOLUTE AUTO 0.02 K/mm3 (0.00-0.23); BASOPHILS PERCENT AUTO 0 % (0-2); EOSINOPHILS PERCENT AUTO 0 % (0-6); Hematocrit 38.7 % (33.0-51.0); Hemoglobin 13.1 g/dL (11.5-16.0); IMMATURE GRAN ABSOLUTE AUTO 0.06 K/mm3 (0.00-0.10); IMMATURE GRAN PERCENT AUTO 1 % (0-1); LYMPHOCYTES ABSOLUTE AUTO 1.24 K/mm3 (0.84-5.20); LYMPHOCYTES PERCENT AUTO 10 % (21-46); MONOCYTES ABSOLUTE AUTO 0.95 K/mm3 (0.16-1.47); MONOCYTES PERCENT AUTO 8 % (4-13); Mean Corpuscular HGB Conc 33.9 g/dL (31.5-36.5); Mean Corpuscular Volume 89 fL (80-100); Mean Platelet Volume 9.1 fL (9.1-12.4); NEUTROPHILS ABSOLUTE AUTO 10.19 K/mm3 (1.96-9.15); NEUTROPHILS PERCENT AUTO 82 % (41-73); Platelet Count 272 K/mm3 (150-400); RDW Coefficient Variation 13.4 % (11.7-14.2); RDW Standard Deviation 43.8 fL (35.1-46.3); Red Blood Cell Count 4.37 M/mm3 (3.80-5.20); White Blood Cell Count 12.46 K/mm3 (4.00-11.30)
[2023-11-15 04:07] LABS: Bun/Creatinine Ratio 31.1 (12.0-20.0); Creatinine, Blood 0.68 mg/dL (0.40-1.00); Potassium, Blood 3.6 mmol/L (3.5-5.5)
--- NOTE | 2023-11-15 05:53 | NUR ---
SHIFT SUMMERY PT IS MORE RESPONSIVE, ANSWERING SIMPLE QUESTIONS ALTHOUGH SPEECH IS MUMBLED AND SOFT. SHE FALLS BACK ASLEEP BUT WILL AWAKEN TO VERBAL STIMULI. VSS, AFEBRILE. DIAMOND CATH INTACT PATENT AND DRAINING. 2L NC W/NO S/S OF RESP DISTRESS NOTED OVERNIGHT. PT HAS HAD NO ACUTE CHANGES TO POC THIS SHIFT.
[2023-11-15 06:41] LABS: Bilirubin, Total 0.4 mg/dL (0.1-1.0); Globulin, Blood 3.1 g/dL (2.2-4.0); Total Protein, Blood 6.1 g/dL (6.4-8.2)
[2023-11-15] MEDS ORDERED: Lactated Ringer's 1,000 ML IV SCH (07:35)
[2023-11-15] MEDS ORDERED: Metoclopramide HCl 5MG / ML 2ML Vial IV SCH (08:00)
--- NOTE | 2023-11-15 08:00 | NUR ---
ASSUMED CARE: REPORT RECEIVED FROM YUSRA Vargas RN. ASSUMED CARE OF THIS PT AT APPROX 0700. ON ASSESSMENT, THE PT IS RESTING QUIETLY. SHE AWAKENS TO VERBAL STIMULI & IS ORIENTED TO HERSELF, HER & STAFF. SHE IS ABLE TO FOLLOW DIRECTIONS BUT OVERALL VERY DROWSY. THE PT's STS THIS IS HER BASELINE MENTATION. LS CLEAR T/O, PT ON 2L NC W/ O2 SATS > 95%. MONITOR SHOWS SR W/ HR 70s, BP STABLE. PT ABLE TO TAKE PO MEDS ONE AT A TIME W/ SIPS OF WATER. NO GI COMPLAINTS THIS AM. DIAMOND PATENT/ DRAINING YELLOW URINE. SKIN CONDITION OVERALL INTACT, FRAGILE. Q2H REPOSITIONING TO MAINTAIN SKIN INTEGRITY. WILL CONTINUE TO MONITOR & UPDATE NEEDED.
--- NOTE | 2023-11-15 08:25 | NUR ---
DR BALDERAS: PROVIDER AT [facility] THIS AM TO [facility]LU PT. HE HAS SPOKEN W/ THE PT's , WHO IS AT BEDSIDE. THE PT's FEELS THAT THE PT IS BACK AT HER NEUROLOGICAL BASELINE. ORDERS PLACED FOR SURGICAL STATUS, NO TELE. NO OTHER CHANGES AT THIS TIME.
--- NOTE | 2023-11-15 12:05 | NUR ---
TRANSFER TO MEDICAL FLOOR: REPORT HAS BEEN GIVEN TO MONSTER Quigley RN TO ASSUME CARE. PT TRANSFERRED TO ROOM 311 AT APPROX 1205 VIA BED BY JAIRO GASTON. CHART & ALL BELONGINGS HAVE TRANSFERRED W/ THE PT AT THIS TIME.
--- NOTE | 2023-11-15 13:23 | NUR ---
PT ARRIVED TO MEDICAL FLOOR @1210 VIA [facility]. PT TRANSFERRED TO [facility] WITH FULL ASSISTANCE. PT ABLE TO TAKE 2 BITES OF GRAPE JUICE BUT HAD INCREASED SALIVATION. SUCTION SET UP IN ROOM. PT ABLE TO USE SUCTION INDEPENDENTLY. LR INFUSING IN RFA IV @150/HR. AT BEDSIDE. PT HAS MUMBLED SPEECH AND APPEARS LETHARGIC. COOPERATIVE WITH CARE. CALL LIGHT IN REACH.
--- NOTE | 2023-11-15 15:40 | NUR ---
PT BACK FROM MRI. LR STARTED AGAIN @150/HR. PT RESTING COMFORTABLY IN BED. SUCTION AND CALL LIGHT WITHIN REACH.
--- NOTE | 2023-11-15 18:43 | NUR ---
SHIFT SUMMARY: PT A&O X4. PLEASANT AND COOPERATIVE WITH CARE. PT HAS BEEN VERY LETHARGIC THIS SHIFT. PT ABLE TO TOLERATE 2 BITES OF LUNCH. ABLE TO TOLERATE ICE WATER AND 25% OF DINNER. SUCTION SET UP IN ROOM FOR HYPERSALIVATION. NO SEIZURE SYMPTOMS THIS SHIFT. PT RECEIVED MRI AROUND 1450. RESULTS IN CHART. PT HAD BP OF 198/91 WITH AFTERNOON VITALS. IV HYDRALAZINE GIVEN PER EMAR. PT CURRENTLY DOWN TO 148/73. PT SLEEPING COMFORTABLY AT THIS TIME. DIAMOND IN PLACE DRAINING YELLOW URINE TO GRAVITY. CALL LIGHT IN REACH. BED IN LOWEST POSITION.
[2023-11-16 04:13] VITALS: BP 120/61
[2023-11-16 06:12] LABS: BASOPHILS ABSOLUTE AUTO 0.04 K/mm3 (0.00-0.23); BASOPHILS PERCENT AUTO 0 % (0-2); EOSINOPHILS ABSOLUTE AUTO 0.02 K/mm3 (0.00-0.68); EOSINOPHILS PERCENT AUTO 0 % (0-6); Hematocrit 34.6 % (33.0-51.0); Hemoglobin 11.4 g/dL (11.5-16.0); IMMATURE GRAN ABSOLUTE AUTO 0.03 K/mm3 (0.00-0.10); IMMATURE GRAN PERCENT AUTO 0 % (0-1); LYMPHOCYTES ABSOLUTE AUTO 1.68 K/mm3 (0.84-5.20); LYMPHOCYTES PERCENT AUTO 17 % (21-46); MONOCYTES PERCENT AUTO 7 % (4-13); Mean Corpuscular HGB 30.2 pg (26.0-34.0); Mean Corpuscular HGB Conc 32.9 g/dL (31.5-36.5); Mean Corpuscular Volume 92 fL (80-100); Mean Platelet Volume 9.5 fL (9.1-12.4); NEUTROPHILS ABSOLUTE AUTO 7.17 K/mm3 (1.96-9.15); NEUTROPHILS PERCENT AUTO 74 % (41-73); Platelet Count 221 K/mm3 (150-400); RDW Coefficient Variation 13.7 % (11.7-14.2); RDW Standard Deviation 46.1 fL (35.1-46.3); Red Blood Cell Count 3.78 M/mm3 (3.80-5.20); White Blood Cell Count 9.64 K/mm3 (4.00-11.30)
[2023-11-16 06:46] LABS: Bun/Creatinine Ratio 36.7 (12.0-20.0); Creatinine, Blood 0.6 mg/dL (0.40-1.00); Potassium, Blood 3.1 mmol/L (3.5-5.5)
[2023-11-16] MEDS ORDERED: Potassium Chl 20MEQ/Water100ML 100 ML IV SCH (07:05)
[2023-11-16] MEDS ORDERED: NS 250 ML IV PRN (07:50)
[2023-11-16 07:54] VITALS: BP 186/82
--- NOTE | 2023-11-16 08:22 | NUR ---
Patient has been alert and oriented x2. Pt knows her home phone number. Pt did take pills x2 with applesauce but then had upper chest discomfort and other pills were held. Pt has das cath with orange-shannan urine with sedament. Pt assisted to reposition. Pt has not needed the oral suction tonight. O2 at 2 liters. Has been able to rest. states she is more clear than yesterday morning. call light in reach. Contact isolation.
[2023-11-16] MEDS ORDERED: LevETIRAcetam 100 MG/ML 5ML ORAL SYR PO SCH (10:00)
[2023-11-16] MEDS ORDERED: levETIRAcetam 500 MG in NS 100 ML IV SCH (10:02)
[2023-11-16 16:43] VITALS: BP 176/86
--- NOTE | 2023-11-16 18:36 | NUR ---
SHIFT SUMMARY: PT A/O X3 THIS SHIFT. PLEASANT AND COOPERATIVE WITH CARE. PT ABLE TO WORK WITH PHYSICAL THERAPY. PT ABLE TO SIT UP BY SELF. PT RECOMMENDING HOME HEALTH AFTER DISCHARGE. PT RECEIVED 3 BAG 20MEQ POTASSIUM, TOLERATED WELL. PT ABLE TO EAT 20-30% OF EACH MEAL. SUCTION AT BEDSIDE. NOTED LESS HYPERSALIVATION THIS SHIFT. APPEARS MORE ALERT. LR INFUSING @150/HR. CALL LIGHT IN REACH. BED IN LOWEST POSITION. WILL REPORT TO ONCOMING RN.
[2023-11-16 20:57] VITALS: BP 128/76
[2023-11-17] VITALS (7 sets, daily range): BP systolic 107–204; BP diastolic 66–89
--- NOTE | 2023-11-17 05:10 | NUR ---
SHIFT SUMMARY NOC A/O X 3-4. [place]. PLEASANT AND COOPERATIVE WITH CARE. NO ACUTE CHANGES TO REPORT. PT ABLE TO TAKE BEDTIME RX WHOLE WITH WATER WITH NO SWALLOWING ISSUES. ON CLEAR LIQUID DIET WITH ADVANCE TOLERATED. PT HAS DIAMOND IN PLACE DRAINING ORANGE URINE TO GRAVITY. LR @ 150 ML/HR INFUSING. ON O2 2L/NC SP02 > 92%. PT IS CURRENTLY RESTING WITH BED IN LOWEST POSITION, AND CALL LIGHT WITHIN REACH.
[2023-11-17 05:18] LABS: BASOPHILS ABSOLUTE AUTO 0.03 K/mm3 (0.00-0.23); BASOPHILS PERCENT AUTO 0 % (0-2); EOSINOPHILS ABSOLUTE AUTO 0.08 K/mm3 (0.00-0.68); EOSINOPHILS PERCENT AUTO 1 % (0-6); Hemoglobin 11.7 g/dL (11.5-16.0); IMMATURE GRAN ABSOLUTE AUTO 0.03 K/mm3 (0.00-0.10); IMMATURE GRAN PERCENT AUTO 0 % (0-1); LYMPHOCYTES ABSOLUTE AUTO 1.62 K/mm3 (0.84-5.20); LYMPHOCYTES PERCENT AUTO 19 % (21-46); MONOCYTES ABSOLUTE AUTO 0.64 K/mm3 (0.16-1.47); MONOCYTES PERCENT AUTO 7 % (4-13); Mean Corpuscular HGB 30.9 pg (26.0-34.0); Mean Corpuscular HGB Conc 34.4 g/dL (31.5-36.5); Mean Corpuscular Volume 90 fL (80-100); Mean Platelet Volume 9.6 fL (9.1-12.4); NEUTROPHILS ABSOLUTE AUTO 6.26 K/mm3 (1.96-9.15); NEUTROPHILS PERCENT AUTO 72 % (41-73); Platelet Count 210 K/mm3 (150-400); RDW Coefficient Variation 13.6 % (11.7-14.2); RDW Standard Deviation 44.9 fL (35.1-46.3); Red Blood Cell Count 3.79 M/mm3 (3.80-5.20); White Blood Cell Count 8.66 K/mm3 (4.00-11.30)
[2023-11-17 05:56] LABS: Albumin, Blood 2.6 g/dL (3.4-5.0); Albumin/Globulin Ratio 0.9 (0.8-1.8); Bilirubin, Total 0.5 mg/dL (0.1-1.0); Calcium, Blood 8.9 mg/dL (8.5-10.1); Creatinine, Blood 0.54 mg/dL (0.40-1.00); Globulin, Blood 2.8 g/dL (2.2-4.0); Potassium, Blood 3.5 mmol/L (3.5-5.5); Total Protein, Blood 5.4 g/dL (6.4-8.2)
[2023-11-17] MEDS ORDERED: Scopolamine Hydrobromide Patch TOP PRN (10:15)
[2023-11-17] MEDS ORDERED: HYDROmorphone HCl/Pf 1MG SYR IV PRN (17:15)
[2023-11-17] MEDS ORDERED: HydrALAZINE HCl 20 MG / ML 1ML Vial IV PRN (17:15)
--- NOTE | 2023-11-17 18:53 | NUR ---
SHIFT SUMMARY PT AXO, PLEASANT AND COOPERATIVE WITH CARE. PT TOLERATED CLEAR LIQUIDS THEN A YOGURT SO DIET WAS ADVANCED TO SOFT DIET. PT WAS NOT TOLERATING AFTER. SCOPOLOMINE PATCH GIVEN FOR SECRETIONS. HTN NOTED AT 1551 WITH BP OF 202/89, PT MEDICATED PER EMAR. BP NOW 161/76. DR LAKHANI NOTIFIED AT 1706, NEW ORDERS PLACED. PT WAS HAVING PAIN ALSO, NEW ORDERS PER DR LAKHANI ALSO. PT STATES SHE JUST DOESN'T FEEL WELL. UP WITH 1-2 ASSIST, FWW AND GB. IV PATENT AND SALINE LOCKED. BED IN LOW POSITION, CALL LIGHT WITHIN REACH.
[2023-11-18 05:09] LABS: BASOPHILS ABSOLUTE AUTO 0.02 K/mm3 (0.00-0.23); BASOPHILS PERCENT AUTO 0 % (0-2); EOSINOPHILS ABSOLUTE AUTO 0.08 K/mm3 (0.00-0.68); EOSINOPHILS PERCENT AUTO 1 % (0-6); Hematocrit 37.6 % (33.0-51.0); Hemoglobin 12.8 g/dL (11.5-16.0); IMMATURE GRAN ABSOLUTE AUTO 0.05 K/mm3 (0.00-0.10); IMMATURE GRAN PERCENT AUTO 0 % (0-1); LYMPHOCYTES ABSOLUTE AUTO 1.82 K/mm3 (0.84-5.20); LYMPHOCYTES PERCENT AUTO 14 % (21-46); MONOCYTES ABSOLUTE AUTO 0.89 K/mm3 (0.16-1.47); MONOCYTES PERCENT AUTO 7 % (4-13); Mean Corpuscular Volume 88 fL (80-100); Mean Platelet Volume 9.5 fL (9.1-12.4); NEUTROPHILS ABSOLUTE AUTO 10.58 K/mm3 (1.96-9.15); NEUTROPHILS PERCENT AUTO 79 % (41-73); Platelet Count 233 K/mm3 (150-400); RDW Coefficient Variation 13.5 % (11.7-14.2); RDW Standard Deviation 43.9 fL (35.1-46.3); Red Blood Cell Count 4.27 M/mm3 (3.80-5.20); White Blood Cell Count 13.44 K/mm3 (4.00-11.30)
[2023-11-18 05:46] LABS: Albumin, Blood 2.9 g/dL (3.4-5.0); Albumin/Globulin Ratio 0.9 (0.8-1.8); Bilirubin, Total 0.6 mg/dL (0.1-1.0); Bun/Creatinine Ratio 25.7 (12.0-20.0); Calcium, Blood 8.8 mg/dL (8.5-10.1); Creatinine, Blood 0.54 mg/dL (0.40-1.00); Globulin, Blood 3.2 g/dL (2.2-4.0); Potassium, Blood 3.3 mmol/L (3.5-5.5); Total Protein, Blood 6.1 g/dL (6.4-8.2)
[2023-11-18 06:24] VITALS: BP 104/60
[2023-11-18] MEDS ORDERED: Potassium Chl 20MEQ/Water100ML 100 ML IV STA (07:14)
[2023-11-18 07:19] VITALS: BP 173/94
--- NOTE | 2023-11-18 07:50 | NUR ---
SHIFT SUMMARY: DAMIAN IS A&OX4. VSS, NO ACUTE EVENTS OVERNIGHT. PT UP TO THE BEDSIDE COMMODE A COUPLE OF TIMES OVERNIGHT, INTERMITTENT URINARY STREAM NOTED. BLADDER SCAN COMPLETED WHICH SHOWED 236. PT STATES THAT SHE DOES NOT FEEL THE LEFT-BEHIND URINE IN HER BLADDER, BUT HAS BEEN TOLD THAT SHE IS NOT EMPTYING HER BLADDER FULLY. SHE IS A ONE-PERSON STANDBY ASSIST TO THE BSC, PT IS SLOW-MOVING BUT STEADY, USES THE CALL LIGHT APPROPRIATELY. IV TO R AC PATENT. SHE IS LYING IN BED WITH THE CALL LIGHT IN REACH. REPORT WAS GIVEN TO DAY SHIFT RN.
[2023-11-18] MEDS ORDERED: Calcium Carbonate 500 MG Tab Chew PO PRN (15:15)
--- NOTE | 2023-11-18 16:54 | NUR ---
ALERT AND OREINTED, SLOW TO RESPOND, VERY WEAK, WITH ABD DISCOMFORT. ABD BLOATED, MEDICATED WITH ZOFRAN, NO BM FOR 7 DAYS, PATIENT HAS HAD VERY POOR INTAKE, VOIDING URINE 100-200 AT A TIME, BLADDER SCAN SHOWED >440 AFTER VOID. TOLERATED FULL LIQUIDS, [facility] ACCEPTED PATIENT FOR POSSIBLE ADMIT TOMORROW, DIM LUNG SOUNDS, SHALLOW SLOW RESPIRATIONS. CALL LIGHT WITH IN REACH WILL RELAY TO PM ERNA
[2023-11-18 17:38] VITALS: BP 125/80
[2023-11-18 19:55] VITALS: BP 153/93
[2023-11-18] MEDS ORDERED: Bisacodyl 10 MG Supp PR ONE (20:25)
[2023-11-18] MEDS ORDERED: Docusate Sodium 100 MG Cap PO SCH (21:00)
[2023-11-19] VITALS (56 sets, daily range): BP systolic 61–197; BP diastolic 41–114
[2023-11-19] MEDS ORDERED: Bisacodyl 10 MG Supp PR PRN (01:50)
[2023-11-19] MEDS ORDERED: NS 1,000 ML IV SCH ×2 (02:55→03:00)
[2023-11-19 03:17] LABS: Hematocrit 28.7 % (33.0-51.0); Hemoglobin 9.6 g/dL (11.5-16.0); Mean Corpuscular HGB Conc 33.4 g/dL (31.5-36.5); Mean Corpuscular Volume 90 fL (80-100); Mean Platelet Volume 9.5 fL (9.1-12.4); Platelet Count 248 K/mm3 (150-400); RDW Coefficient Variation 13.4 % (11.7-14.2); RDW Standard Deviation 44.3 fL (35.1-46.3); White Blood Cell Count 9.68 K/mm3 (4.00-11.30)
[2023-11-19 03:34] LABS: Bun/Creatinine Ratio 20.2 (12.0-20.0); Calcium, Blood 8.8 mg/dL (8.5-10.1); Creatinine, Blood 0.94 mg/dL (0.40-1.00); Potassium, Blood 3.6 mmol/L (3.5-5.5)
[2023-11-19] MEDS ORDERED: NS 1,000 ML IV ONE (03:55)
[2023-11-19] MEDS ORDERED: Midodrine 5 MG Tab PO ONE (04:00)
--- NOTE | 2023-11-19 04:51 | NUR ---
PT CALLED AND REQUESTED TO GET UP AND USE THE BATHROOM. PT PREVIOUSLY HAD BEEN A ONE-PERSON STANDBY ASSIST TO THE BS. PT ABLE TO SIT AT THE SIDE OF THE BED, BUT UNABLE TO TRANSFER TO THE BSC. INSTRUCTED PT TO RETURN TO BED AND PLACED BEDPAN. CHECKED VITAL SIGNS WHICH SHOWED A SIGNIFICANT DECREASE IN BLOOD PRESSURE (61/41 FROM 153/93). CALLED HOSPITALIST AND OBTAINED ORDER FOR 1000 ML NS BOLUS. BP RECHECKS SHOWED ONLY MINIMAL IMPROVEMENT, LUNG SOUNDS WITH NEW CRACKLES. MIDODRINE GIVEN, BP REMAINS SOFT. HOSPITALIST GAVE ORDER FOR PT TO TRANSFER TO ICU. PT UPDATED, WILL CALL AND UPDATE PT'S .
--- NOTE | 2023-11-19 05:05 | NUR ---
ASSUMED CARE OF PT AT 0505 PT MAP >65 AT THIS TIME. LEVOPHED ORDERED AND WILL BE ON STANDBY. CT SCAN TO BE ORDERED THIS AM. RIGHT UPPER ARM IV INSERTED BY CHAMP UMANZOR. VITALS WITHIN NORMAL LIMITS AT THIS TIME. NS AT 150 MLS/HR. PT C/O RIGHT LOWER ABD PAIN WITH AREA TENDER AND FIRM TO THE TOUCH. LUNG SOUNDS CLEAR BUT DIM IN BASES. BLADDER SCAN DONE WITH 325 MLS IN BLADDER AT THIS TIME. PT REPORTS THAT SHE DOES NOT FEEL THE URGE TO URINATE AT THIS TIME. PUREWICK OFFERED AND AT BEDSIDE. CONTINUING TO MONITOR UNTIL AM RN GIVEN REPORT.
[2023-11-19] MEDS ORDERED: Sod Phosphate/Sod Biphosphate 132 ML BTL PR PRN (05:40)
--- NOTE | 2023-11-19 07:31 | NUR ---
ASSUMED CARE OF PT AT 0700 BEDSIDE REPORT RECEIVED FROM ERNA WOODARD. PT IS RESTING IN BED, A/O. SR, BP MAP GOAL > 65. CURRENTLY MAINTAINING MAP, LEVOPHED NOT STARTED BUT AVAILABLE AT BEDSIDE. ON ROOM AIR, DENIES ANY SOB. NPO. FIRM ABD RLQ. CT ABDMOMEN COMPLETED, RESULTS SHOW HEMATOMA. DR. LAKHANI NOTIFIED VIA PHONE OF CT RESULTS. PT HAS NOT VOIDED, BLADDER SCANNED WITHIN LAST HOUR TO REVEAL 325 ML URINE PRESENT. PT STATES SHE WILL ATTEMPT TO VOID THIS AM. NO SKIN CHANGES REPORTED. PIV X2 RIGHT FOREARM AND RIGHT UPPER ARM, NS AT 150 ML/HR INFUSING. AT BEDSIDE. UPDATED ON CT RESULTS AND THAT PHYSICIAN TEAM WAS NOTIFIED. POC ONGOING.
[2023-11-19 08:17] LABS: Hemoglobin 9.8 g/dL (11.5-16.0)
[2023-11-19] MEDS ORDERED: Metoprolol Succinate 50 MG TABCR PO SCH (09:00)
[2023-11-19] MEDS ORDERED: Piperacillin/Tazobactam Sod 4.5 GM in NS 100 ML IV SCH (09:00)
--- NOTE | 2023-11-19 09:07 | NUR ---
LEVOPHED STARTED AT [address] DENISE CONSULTED FOR LINE PLACEMENT, CENTRAL LINE PLACED INTO RIGHT IJ, PLACEMENT CONFIRMED BY CHEST XRAY, LINE OK TO USE PER DR. DENISE. ORDER RECEIVED TO PLACE DIAMOND CATHETER DUE TO LARGE AMOUNT OF URINE RETAINED. POC ONGOING.
[2023-11-19] MEDS ORDERED: Lidocaine 2% Jelly Uro-Jet UR ONE (09:35)
[2023-11-19 11:17] LABS: Source, Urine Foley catheter
[2023-11-19 11:20] LABS: Appearance, Urine Cloudy (Clear); Bilirubin, Urine Neg (Neg); Blood, Urine 5+ (Neg); Color, Urine Yellow (P-Yellow); Glucose Qualitative, Urine Neg (Neg); Ketones, Urine Neg (Neg); Leukocyte Esterase, Urine 3+ (Neg); Nitrite, Urine Neg (Neg); Protein, Urine 3+ (Neg); Urobilinogen, Urine NORM (Normal)
[2023-11-19 11:31] LABS: Bacteria Many /hpf; Calcium Oxalate Crystals Rare /hpf; Red Blood Cells, Urine 25-50 /hpf (0-2); Squamous Epithelial Cells Not Seen /hpf (Few); White Blood Cells, Urine TNTC /hpf (0-5)
[2023-11-19 15:55] LABS: Hematocrit 33.8 % (33.0-51.0); Hemoglobin 11.5 g/dL (11.5-16.0)
[2023-11-19 16:03] LABS: International Normalized Ratio 1.04; Prothrombin Time Results 10.9 Sec (9.7-11.5)
--- NOTE | 2023-11-19 17:49 | NUR ---
DAY SHIFT SUMMARY A/O X4, SPEECH SOFT AND SLOW BUT ORIENTED. MOVES ALL EXTREMETIES. DENIES PAIN. SR, BP LOW THIS AM REQUIRING LEVOPHED. BP STABILIZED AND THEN PT BECAME HYPERTENSIVE. MD NOTIFIED AND ORAL ANTIHYPERTENSIVES REORDERED. TREATED HTN WITH PRN HYDRALIZINE WITH GOOD RESULTS. ON ROOM AIR, LUNGS CTA, SPO2 96%. NPO THIS AM. CLEARED TO RESTART DIET THIS AFTERNOON BUT PT NOT HUNGRY. HAS HAD POOR APPETITE PER . URINARY RETENTION SEEN BY MD DURING ULTRASOUND OF ABD, SUSPECTED CLOTS VISUALIZED IN BLADDER PER MD, 3 WAY DIAMOND PLACED IN ANTICIPATION OF PT NEEDING BLADDER IRRIGATION. URINE IS ORANGE/ANDRE WITH LARGE AMOUNT OF SEDIMENT, NO CLOTS VISUALIZED AFTER CATHETERIZATION. UO TOTAL 850 ML THIS SHIFT. NO BLADDER IRRIGATION NEEDED. SKIN UNCHANGED, REDNESS TO SPINE NOTED, PICTURES IN CHART. PT MOVING SELF IN BED FREQUENTLY, ASSISTED WITH WEIGHT SHIFT NEEDED. AND OTHER FAMILY AT BEDSIDE THIS AM, EDUCATIONS AND UPDATES PROVIDED. POC ONGOING.
[2023-11-19] MEDS ORDERED: Midodrine 5 MG Tab PO SCH (18:00)
[2023-11-19] MEDS ORDERED: Sacubitril/Valsartan 24 MG-26 MG Tab PO SCH (21:00)
[2023-11-19 21:41] LABS: Hematocrit 32.1 % (33.0-51.0)
[2023-11-20] VITALS (28 sets, daily range): BP systolic 71–161; BP diastolic 48–81
[2023-11-20 03:46] LABS: BASOPHILS ABSOLUTE AUTO 0.01 K/mm3 (0.00-0.23); BASOPHILS PERCENT AUTO 0 % (0-2); EOSINOPHILS PERCENT AUTO 0 % (0-6); Hematocrit 31.2 % (33.0-51.0); Hemoglobin 10.5 g/dL (11.5-16.0); IMMATURE GRAN ABSOLUTE AUTO 0.04 K/mm3 (0.00-0.10); IMMATURE GRAN PERCENT AUTO 0 % (0-1); LYMPHOCYTES ABSOLUTE AUTO 1.17 K/mm3 (0.84-5.20); LYMPHOCYTES PERCENT AUTO 13 % (21-46); MONOCYTES ABSOLUTE AUTO 0.67 K/mm3 (0.16-1.47); MONOCYTES PERCENT AUTO 7 % (4-13); Mean Corpuscular HGB 29.5 pg (26.0-34.0); Mean Corpuscular HGB Conc 33.7 g/dL (31.5-36.5); Mean Corpuscular Volume 88 fL (80-100); Mean Platelet Volume 9.2 fL (9.1-12.4); NEUTROPHILS ABSOLUTE AUTO 7.15 K/mm3 (1.96-9.15); NEUTROPHILS PERCENT AUTO 79 % (41-73); Platelet Count 218 K/mm3 (150-400); RDW Coefficient Variation 14.5 % (11.7-14.2); RDW Standard Deviation 46.5 fL (35.1-46.3); Red Blood Cell Count 3.56 M/mm3 (3.80-5.20); White Blood Cell Count 9.04 K/mm3 (4.00-11.30)
[2023-11-20 04:07] LABS: Albumin, Blood 2.8 g/dL (3.4-5.0); Albumin/Globulin Ratio 0.9 (0.8-1.8); Bun/Creatinine Ratio 31.9 (12.0-20.0); Calcium, Blood 8.8 mg/dL (8.5-10.1); Creatinine, Blood 0.66 mg/dL (0.40-1.00); Globulin, Blood 3.1 g/dL (2.2-4.0); Potassium, Blood 3.3 mmol/L (3.5-5.5); Total Protein, Blood 5.9 g/dL (6.4-8.2)
--- NOTE | 2023-11-20 06:19 | NUR ---
END OF SHIFT SUMMARY PT RESTED MOST OF THE NIGHT,EASILY AROUSED, VERY LETHARGIC. PT IS UNABLE TO TAKE ANYTHING PO D/T VOMITTING (INCLUDING WATER). BP MEDICATIONS HELD LAST EVENING D/T SBP 110. PT BECAME HYPOTENSIVE NEEDING LEVOPHED FOR 1 HOUR AT 1 MCG, THEN REBOUNDED TO SBP 150'S. LEVO SB AND NO OTHER MEDICATIONS GIVEN AFTER. VERY LITTLE URINE OUTPUT APPROX 300 MLS THIS SHIFT. VITALS WNL AT THIS TIME. NO OTHER ACUTE FINDINGS TO REPORT AT THIS TIME. WILL CONTINUE TO MONITOR UNTIL AM RN GIVEN REPORT.
[2023-11-20] MEDS ORDERED: Lactated Ringer's 1,000 ML IV SCH (08:30)
[2023-11-20] MEDS ORDERED: Spironolactone 12.5 MG TAB PO SCH (09:00)
[2023-11-20] MEDS ORDERED: Potassium Chloride 40 MEQ in NS 250 ML IV ONE (10:10)
[2023-11-20 13:15] LABS: Hematocrit 29.7 % (33.0-51.0)
[2023-11-20] MEDS ORDERED: Morphine Sulfate 20 MG/1ML 1 ML Oral Syringe SL PRN (16:00)
[2023-11-20] MEDS ORDERED: Promethazine HCl 25 MG Supp PR PRN (16:00)
[2023-11-20] MEDS ORDERED: LORazepam 1 MG Tab PO PRN (16:00)
[2023-11-20] MEDS ORDERED: Scopolamine Hydrobromide Patch TOP PRN (16:00)
[2023-11-20] MEDS ORDERED: Atropine Sulfate 1% Opth Soln 2ML BTL SL PRN (16:00)
[2023-11-20] MEDS ORDERED: Acetaminophen 650 MG Supp PR PRN (16:00)
--- NOTE | 2023-11-20 16:27 | NUR ---
Goals of Care Follow up with pt and spouse from this mornings conversations with Physicians, PC RN and Primary RN. Maria Fernanda is resting with her eyes closed, she does participate in conversation with short answers. Pt reaffirmed her choices on previously completed Advanced Directive (2022), for no heroic interventions. 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 Pt will continue to receive IV Abx for comfort. Dr. Belcher, pt and spouse are all in agreement for optimizing comfort with IV Abx until D/C home with hospice. Verbal orders received from Dr. Belcher for comfort care status and regimen change. Orders placed accordingly. Provided and reviewed a copy of Hard Choices for [place] People book. aWle took the book home to read this eventing. Cat RN, associate art director and Care Management updated with plan to go on Comfort Care and discharge with hospice.
--- NOTE | 2023-11-20 18:14 | NUR ---
DAY SHIFT SUMMARY PT IS A/O, SPEECH SLOW AND SOFT. ABLE TO MAKES NEEDS KNOWN. FOLLOWS ALL COMMANDS AND MOVES ALL EXTREMETIES ALTHOUGH IS WEAK. SR-ST, BP WNL. ON ROOM AIR, O2 SAT > 94%. HAS INCREASED NAUSEA AND WRETCHING WTIH ORAL INTAKE. ABLE TO TOLERATE 1-2 BITES OF PUDDING AND SOME ICE CHIPS. DIAMOND REMAINS IN PLACE. SKIN INTACT. PIV X1 RIGHT UPPER ARM. LEFT IJ CENTRAL LINE D/C'D. PT TOLERATED WELL. AND FAMILY AT BEDSIDE THROUGHOUT SHIFT. PT OFFERED OPTIONS FOR TREATMENT MOVING FORWARD INCLUDING ARTIFICIAL FEEDING, PT DECLINES. THIS IS CONSISTENT WITH HER ADVANCED DIRECTIVE ON FILE. PALLIATIVE CARE RN MET WITH PT AND AFTER CONVERSATIONS WITH MULTIPLE MD'S. PT AND ASKED TO HAVE SOME TIME TO TALK ABOUT DECISIONS. PALLIATIVE CARE RN RETURNED THIS AFTERNOON AND SPOKE WITH PT AND AGAIN. DECISION MADE TO PROCEED WITH COMFORT CARE. WOULD LIKE TO BE NOTIFIED WHEN PT MOVED TO MEDICAL FLOOR. POC ONGOING.
--- NOTE | 2023-11-21 06:25 | NUR ---
SHIFT SUMMARY PT RESTED ALL SHIFT WITHOUT COMPLAINT. TKO ONLY.
--- NOTE | 2023-11-21 12:19 | NUR ---
CARE MANAGEMENT TO BEDSIDE PLANS TO CARE FOR PT AT HOME ON HIS OWN. MINIMAL NATURAL SUPPORT. CAREGIVER LIST PROVIDED BY CASE MANAGEMENT WELL TYPED PLAN FOR HOSPICE AND GREIVING BOOKLETS. ALL QUESTIONS ANSWERED RE: PLAN FOR HOSPITAL BED DELIVERY AND POSSIBLE TIMELINE. DOES NOT HAVE CELL PHONE SO COMMUNICATION WITH HIM WILL NEED TO BE DONE AT THE BEDSIDE OR WHILE HE IS AT HOME. MEDICAL FLOOR BED NOT AVAILABLE AT THIS TIME. POC ONGOING.
--- NOTE | 2023-11-21 16:03 | NUR ---
MEDICAL FLOOR BED AVAILBLE REPORT CALLED TO ERNA BALES. PT REMAINS A/O, RESTING EASILY. C/O PAIN X1, MEDICATED PER MAR WITH GOOD RELIEF. MULTIPLE FAMILY MEMBERS IN TO VISIT TODAY, PT STATES SHE ENJOYED VISITS. NOTIFIED OF TRANSFER, GIVEN ROOM NUMBER AND PHONE NUMBER TO MEDICAL FLOOR. POC ONGOING.
--- NOTE | 2023-11-21 18:22 | NUR ---
SHIFT SUMMARY TRANSFER FROM ICU LATE THIS SHIFT. TOLERATED BED TRANSFER WELL. DIAMOND CATH IN PLACE WITH HEMOSTAT LOCKING 3RD IRRIGATION PORT, NOTIFIED CHARGE THAT THIS WILL NEED CHANGED TO REGULAR DIAMOND. CENTRAL LINE DRESSING IN PLACE TO LEFT NECK, CDI. NO C/O PAIN AT THIS TIME. CARES ONGOING.
[2023-11-22 06:18] LABS: BASOPHILS ABSOLUTE AUTO 0.03 K/mm3 (0.00-0.23); BASOPHILS PERCENT AUTO 0 % (0-2); EOSINOPHILS ABSOLUTE AUTO 0.13 K/mm3 (0.00-0.68); EOSINOPHILS PERCENT AUTO 2 % (0-6); Hematocrit 28.5 % (33.0-51.0); Hemoglobin 9.3 g/dL (11.5-16.0); IMMATURE GRAN ABSOLUTE AUTO 0.05 K/mm3 (0.00-0.10); IMMATURE GRAN PERCENT AUTO 1 % (0-1); LYMPHOCYTES ABSOLUTE AUTO 1.36 K/mm3 (0.84-5.20); LYMPHOCYTES PERCENT AUTO 20 % (21-46); MONOCYTES ABSOLUTE AUTO 0.76 K/mm3 (0.16-1.47); MONOCYTES PERCENT AUTO 11 % (4-13); Mean Corpuscular HGB 30.1 pg (26.0-34.0); Mean Corpuscular HGB Conc 32.6 g/dL (31.5-36.5); Mean Corpuscular Volume 92 fL (80-100); Mean Platelet Volume 8.6 fL (9.1-12.4); NEUTROPHILS ABSOLUTE AUTO 4.66 K/mm3 (1.96-9.15); NEUTROPHILS PERCENT AUTO 67 % (41-73); Platelet Count 249 K/mm3 (150-400); RDW Coefficient Variation 14.6 % (11.7-14.2); Red Blood Cell Count 3.09 M/mm3 (3.80-5.20); White Blood Cell Count 6.99 K/mm3 (4.00-11.30)
--- NOTE | 2023-11-22 06:25 | NUR ---
SHIFT SUMMARY NOC PT A/O X 4. PLEASANT AND COOPERATIVE WITH CARE. ON COMFORT CARE. PT IN CONTACT ISOLATION FOR Enterococcus faecalis. PT STILL RECEIVING IV ZOSYN ABX FOR TREATMENT. PT HAD MILD C/O OF ABD PAIN AND MEDICATED X 1 WITH DILAUDID AND ATIVAN FOR ANXIETY/SLEEP. SCHEDULED ANTI-EMETIC ALSO GIVEN. SO FAR NO HYPERSECRETIONS NOTED. PT HAS DIAMOND IN PLACE FOR RETENTION. PT DISCHARGE ON HOME HOSPICE IS PENDING PLANNING/ARRANGEMENTS, AND DELIVERY OF DME (DURABLE MEDICAL EQUIPMENT) TO HOME WHERE FAMILY WILL TAKE DELIVERY. PT IS RESTING COMFORTABLY WITH BED IN LOWEST POSITION, AND CALL LIGHT WITHIN REACH. PT IS REQUESTING ENEMA PRIOR TO DISCHARGE TO AVOID INCONTINENCE ACCIDENT ON TRANSPORT HOME.
[2023-11-22 06:46] LABS: Calcium, Blood 8.9 mg/dL (8.5-10.1); Creatinine, Blood 0.71 mg/dL (0.40-1.00); Potassium, Blood 2.9 mmol/L (3.5-5.5)
--- NOTE | 2023-11-22 14:33 | NUR ---
Comfort Care Supportive Visit Met with pt's spouse outside of pt's room while Primary RN was providing bowel care. Spouse, Wale is having anticipatory greif. He and the pt are looking forward to going home with hospice when available.
--- NOTE | 2023-11-22 16:46 | NUR ---
SHIFT SUMMARY: NO EVENTS OR CHANGED WITH THE PATIENT THROUGHOUT THE SHIFT. SHE HAS BEEN DENYING PAIN, BUT MEDICATING WITH COMFORT MEASURES NEEDED. HER LOLA HAS BEEN AT THE BEDSIDE MOST OF THE DAY, BUT RECENTLY WENT HOME FOR THE DAY TO PREPARE FOR HOSPICE AT HOME; POSSIBLY TOMORROW 11/23/23. SHE CONTINUES TO HAVE A 3 WAY DIAMOND FROM THE ICU AND WHEN ASKED ABOUT KEEPING A CATHETER IN FOR WHEN SHE GOES HOME; SHE VOICES THAT SHE WOULD LIKE TO HAVE IT BE TAKEN OUT SO SHE CAN JUST GO THE BATHROO, BUT ALSO STATED THAT SHE WAS HAVING RETENTION ISSUES SINCE BEING IN THE HOSPITAL AND ALSO EXPRESSES CONCERN WITH RETENTION AT HOME IF THE DIAMOND ISN'T PRESENT. NOTIFIED THE PATIENT IS THE CATHETER STAYS THAT WE WOULD SWITCH IT TO A REGULAR DIAMOND CATHETER BEFORE DISCHARGE AND IF SHE DID DECIDE TO NOT GET ONE PUT IN; THE HOPCE NURSE CAN PUT THEM IN AND TAKE THEM OUT. SHE IS IN BED, CALL LIGHT WITHIN REACH, USES CALL LIGHT APPROPRIATELY, NO SIGNS OR SYMPTOMS OF DISTRESS, PLAN OF CARE ONGOING.
--- NOTE | 2023-11-22 17:14 | NUR ---
Spiritual care visit conducted. Patient is very pleasant and engages deeply in conversation about her medical journey and the spiritual aspects of this for her and the moments when God was present in a very memorable way. She talks about her spouse and the toll her situation has taken on him and her concerns for him. She speaks about her son and what her concerns are for him. She shares about growing up in the [facility] and how her beleif in God still remains to this day. We discuss , dying and the afterlife. I provide therapeutic listening, focused meaningful dialogue, gentle counseling director, theological insights and prayer. Patient responded well and showed signs of increased peace. I will continue to remain available to patient and family.
--- NOTE | 2023-11-23 03:43 | NUR ---
SHIFT SUMMARY PT A&O X4, CALM AND COOPERATIVE WITH CARE. PT IS COMFORT CARE ONLY AT THIS TIME. PT HAS 3 WAY DIAMOND, PATENT AND DRAINING DARK URINE. PT PASSING LOOSE MUCOUSY STOOL. FAMILY AT BEDSIDE AT START OF SHIFT. PT COMPLAINED OF HEAD/NECK PAIN MEDICATED PER EMAR. NO ACUTE CHANGES THIS SHIFT. BED KEPT IN LOWEST POSIITON WITH CALL LIGHT WITHIN REACH.
--- NOTE | 2023-11-23 12:15 | NUR ---
MET WITH DAMIAN. HER BROTHER WAS AT BEDSIDE. WE REVIEWED AND FILLED OUT A POLST. SHE IS NOT SHOWING SIGNS OF DISCOMFORT AT THIS TIME. HER BREATHING IS EVEN AND UNLABORED. I KEPT OUR VISIT BREIF SO SHE COULD VISIT WITH FAMILY.
--- NOTE | 2023-11-23 15:18 | NUR ---
DISCHARGE NOTE: PRIOR TO MEDICAL TRASPORT ARRIVAL TIME I GOT THE PATIENT OUT OF BED AND HER AND I AMBULATED TO THE RESTROOM WHERE SHE VOIDED AND HAD A BOWELMOVENT. SHE TOLERATED WALKING WELL AND STATED IT FELT GOOD TO BE UP. SHE WAS CLEANED UP, PUT IN HER OWN CLOTHING, BELONINGS WERE COLLECTED, AND SHE WAITING FOR TRANSPORT IN THE BEDSIDE RECLINER WITH HER LUNCH TRAY, CALLED HER AND HAD HER CALL LIGHT WITHIN REACH, NO SIGNS OR SYMPTOMS OF DISTRESS. MEDICAL TRANSPORT VIA WHEELCHAIR ARRIVED AT 1500, GOT PAPER TRANPORT PAPERWORK, BELONGINGS, AND THE PATIENT. NO SIGNS OR SYMPTOMS OF DISTRESSS WITH DISCHARGE.
== END 2023-11-23 14:53 | disposition hospice, home (50) | DRG 391 ==
LOC: ER 18:59 → SURS 19:00 → MEDS 11-14 09:43 → ICUE 11-14 09:43 → SURS 11-14 09:43 → ICUE 11-14 12:07 → MEDS 11-15 12:15 → ICUE 11-19 05:03 → MEDS 11-21 16:48
PROVIDERS: Family Medicine; Hospitalist; Internal Medicine; Student in an Organized Health Care Education/Training Program; ADMIT Internal Medicine
PROC: 02H633Z Insertion of Infusion Device into Right Atrium, Percutaneous Approach (ICD-10-PCS; principal; 2023-11-19)
PROC: 30233N1 Transfusion of Nonautologous Red Blood Cells into Peripheral Vein, Percutaneous Approach (ICD-10-PCS; 2023-11-19)
PROC: 3E033XZ Introduction of Vasopressor into Peripheral Vein, Percutaneous Approach (ICD-10-PCS; 2023-11-19)
DX: R10.9 Unspecified abdominal pain (principal); R57.1 Hypovolemic shock; R57.8 Other shock; E44.0 Moderate protein-calorie malnutrition; Z68.1 Body mass index [BMI] 19.9 or less, adult; E87.1 Hypo-osmolality and hyponatremia; I50.22 Chronic systolic (congestive) heart failure; D62 Acute posthemorrhagic anemia; E87.21 Acute metabolic acidosis; Z51.5 Encounter for palliative care; Z66 Do not resuscitate; F32.A Depression, unspecified; E03.9 Hypothyroidism, unspecified; E86.0 Dehydration; R33.9 Retention of urine, unspecified; E78.5 Hyperlipidemia, unspecified; K21.00 Gastro-esophageal reflux disease with esophagitis, without bleeding; I11.0 Hypertensive heart disease with heart failure; I25.10 Atherosclerotic heart disease of native coronary artery without angina pectoris; E87.6 Hypokalemia; R53.81 Other malaise; R56.9 Unspecified convulsions; K11.7 Disturbances of salivary secretion; M79.81 Nontraumatic hematoma of soft tissue; Z90.49 Acquired absence of other specified parts of digestive tract; I25.2 Old myocardial infarction; Z79.82 Long term (current) use of aspirin; Z79.02 Long term (current) use of antithrombotics/antiplatelets; Z79.890 Hormone replacement therapy
CPT/HCPCS: 36415; 36416; 36430; 36556; 51700; 51702; 51703; 51798; 70450; 70490; 70551; 71045; 71250; 74150; 74175; 74177; 80048; 80053; 81001; 82803; 82947; 83605; 83690; 83735; 84100; 84146; 84439; 84443; 85014; 85018; 85025; 85027; 85610; 85730; 86850; 86900; 86901; 86923; 87040; 87077; 87086; 87186; 93005; 93010; 94760; 94761; 94762; 96361; 96365; 96366; 96372; 96374; 96375; 96376; 97110; 97116; 97162; 97530; 99285-25; A9270; C1751; C9113; G0378; J0360; J1170; J1200; J1650; J1953; J2060; J2405; J2543; J2765; J3010; J3480; J7030; J7050; J7060; J7120; P9016; Q9967